=== PATIENT | female | born 2000 | race Caucasian/White ===

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

== ENCOUNTER 2021-05-01 14:21 | Emergency (ER) | payer SELFPAY ==
[~2021-05-01] VITALS: Ht 154.9 cm; Wt 56.2 kg
[2021-05-01 14:49] VITALS: BP 122/69
[2021-05-01] MEDS ORDERED: NAPR-54 PO (15:39)
[2021-05-01 15:48] VITALS: BP 122/69
== END 2021-05-01 15:48 | disposition home or self-care (01) ==
LOC: MED 14:21
DX: S39.012A Strain of muscle, fascia and tendon of lower back, initial encounter (principal); X58.XXXA Exposure to other specified factors, initial encounter; Y93.89 Activity, other specified; Y92.89 Other specified places as the place of occurrence of the external cause; Y99.8 Other external cause status
CPT/HCPCS: 81002; 81025; 99282

== ENCOUNTER 2023-04-08 21:30 | Emergency (ER) | payer SELFPAY ==
[~2023-04-08] VITALS: Ht 152.4 cm; Wt 63.5 kg
[~2023-04-08 21:30] MED LIST: NAPR-54 PO
[2023-04-08 21:40] VITALS: BP 110/81
--- NOTE | 2023-04-08 21:43 | NUR ---
TO LOBBY A/W BED AMBULATORY
--- NOTE | 2023-04-08 23:25 | NUR ---
Patient taken to bed 10.
[2023-04-09] MEDS ORDERED: DIPH25TA53 PO (00:07)
[2023-04-09 00:13] VITALS: BP 110/81
--- NOTE | 2023-04-09 00:13 | NUR ---
Patient discharged with v/s stable. Written and verbal after care instructions given and explained. Patient alert, oriented and verbalized understanding of instructions. Ambulatory with steady gait. All questions addressed prior to discharge. ID band removed. Patient advised to follow up with PMD. Rx of BENADRYL given. Patient educated on indication of medication including possible reaction and side effects. Opportunity to ask questions provided and answered.
== END 2023-04-09 00:13 | disposition home or self-care (01) ==
LOC: MED 21:30
DX: L29.9 Pruritus, unspecified (principal); T78.49XA Other allergy, initial encounter; X58.XXXA Exposure to other specified factors, initial encounter
CPT/HCPCS: 99282

== ENCOUNTER 2024-01-04 20:09 | Emergency (ER) | payer MEDICAID ==
[~2024-01-04] VITALS: Ht 154.9 cm; Wt 70.8 kg
[~2024-01-04 20:09] MED LIST changes: +DIPH25TA53 PO
[2024-01-04 20:22] VITALS: BP 134/80; PULSE 95; RESP 18; TEMP 97.1; O2SAT 99
[2024-01-04 20:25] VITALS: BP 134/80; PULSE 95; RESP 18; TEMP 97.1
[2024-01-04 20:40] VITALS: O2SAT 99
[2024-01-04 21:14] LABS: APPEARANCE,URINE CLOUDY (CLEAR); BILIRUBIN,URINE NEGATIVE (NEGATIVE); BLOOD, URINE 3+ (NEGATIVE); COLOR,URINE RED (YELLOW); LEUKOCYTE ESTERASE ,URINE NEGATIVE (NEGATIVE); NITRITE, URINE POSITIVE (NEGATIVE); PH,URINE 7.5 (5.0-9.0); PROTEIN,URINE 2+ (NEGATIVE); UGLUCOSE NEGATIVE (NEGATIVE)
[2024-01-04 21:26] LABS: BACTERIA,URINE 3+ /HPF (None Seen); MUCUS,URINE 1+ /LPF (None Seen); RBC,URINE TOO NUMEROUS TO COUN /HPF (0-5); SQUAMOUS EPITHELIAL CELL,UR 4-10 (MOD) /LPF (0-3 (FEW)); TRICHOMONAS,URINE None Seen /HPF (None Seen); YEAST,URINE None Seen /HPF (None Seen)
[2024-01-04] MEDS ORDERED: NITR100C7 PO (21:38)
== END 2024-01-04 21:47 | disposition home or self-care (01) ==
LOC: MED 20:09
DX: O20.0 Threatened abortion (principal); O23.41 Unspecified infection of urinary tract in pregnancy, first trimester; Z3A.11 11 weeks gestation of pregnancy; Z79.899 Other long term (current) drug therapy; Z79.1 Long term (current) use of non-steroidal anti-inflammatories (NSAID); Z79.2 Long term (current) use of antibiotics
CPT/HCPCS: 81001; 81025; 87086; 99283

== ENCOUNTER 2024-04-30 14:05 | Observation (INO) | payer MEDICAID ==
[~2024-04-30] VITALS: Ht 152.4 cm; Wt 69.9 kg
[~2024-04-30 14:05] MED LIST changes: +NAPR-337 PO; -NAPR-54 PO; +NITR100C7 PO
[2024-04-30 14:30] VITALS: BP 119/61; PULSE 94; RESP 18; TEMP 97.7
[2024-04-30 15:59] LABS: APPEARANCE,URINE CLEAR (CLEAR); BILIRUBIN,URINE NEGATIVE (NEGATIVE); BLOOD, URINE NEGATIVE (NEGATIVE); COLOR,URINE YELLOW (YELLOW); LEUKOCYTE ESTERASE ,URINE NEGATIVE (NEGATIVE); NITRITE, URINE NEGATIVE (NEGATIVE); PROTEIN,URINE NEGATIVE (NEGATIVE); UGLUCOSE NEGATIVE (NEGATIVE); UROBILINOGEN,URINE 0.2 EU/dL (0.2 - 1)
[2024-04-30] MEDS ORDERED: PREN-543 PO (18:09)
== END 2024-04-30 18:25 | disposition home or self-care (01) ==
LOC: MLD 14:05
PROVIDERS: ADMIT Obstetrics & Gynecology; ATTEND Obstetrics & Gynecology
DX: O99.891 Other specified diseases and conditions complicating pregnancy (principal); M54.9 Dorsalgia, unspecified; Z3A.28 28 weeks gestation of pregnancy
CPT/HCPCS: 76770; 76805; 81003; G0378; Q0092